=== PATIENT | male | born 2000 | race Two or more races ===

== ENCOUNTER 2024-12-28 16:06 | Emergency (ER) | payer OTHER ==
[~2024-12-28] VITALS: Ht 172.7 cm; Wt 58.8 kg
[2024-12-28 16:10] VITALS: BP 111/61; O2SAT 100
[2024-12-28 16:14] VITALS: TEMP 98
== END 2024-12-28 16:57 | disposition left against medical advice (07) ==
LOC: M ED 16:06
DX: Z53.21 Procedure and treatment not carried out due to patient leaving prior to being seen by health care provider (principal)

== ENCOUNTER → 2024-12-28 | Outpatient (CLI) | payer OTHER | LOC: M RAD 15:13 | PROVIDERS: ATTEND Physician Assistant Medical | DX: N50.819 Testicular pain, unspecified (principal); N43.3 Hydrocele, unspecified; I86.1 Scrotal varices ==